=== PATIENT | female | born 1955 | race Caucasian/White ===

== ENCOUNTER 2023-07-09 09:00 | Inpatient (IN) | payer MEDICARE, OTHER ==
[~2023-07-09] VITALS: Ht 160 cm; Wt 75.0 kg
[2023-07-09] MEDS ORDERED: normal saline 1000ML IV soln IVB ONE (09:10)
[2023-07-09 09:35] LABS: BASOPHILS # (AUTO) 0.1 X10'3 (0-0.2); BASOPHILS % (AUTO) 0.4 % (0-1); EOSINOPHILS % (AUTO) 0.2 % (0-6); HEMATOCRIT 42.9 % (35.0-45.0); HEMOGLOBIN 14.1 g/dl (12.0-16.0); LYMPHOCYTES # (AUTO) 0.6 X10'3 (1.1-4.8); LYMPHOCYTES % (AUTO) 2.9 % (21-51); MEAN CORPUSCULAR HEMOGLOBIN 31.3 PG (27.0-31.0); MEAN CORPUSCULAR HGB CONC 32.9 g/dL (33.0-36.5); MEAN CORPUSCULAR VOLUME 95.1 FL (78-98); MONOCYTES # (AUTO) 1.3 X10'3 (0-0.9); MONOCYTES % (AUTO) 6.5 % (2-12); NEUTROPHILS # (AUTO) 17.9 X10'3 (1.8-7.7); PLATELET COUNT 211 X10'3 (140-440); RED BLOOD COUNT 4.51 X10'6 (4.20-5.60); RED CELL DISTRIBUTION WIDTH 12.9 % (11.5-14.5); WHITE BLOOD COUNT 19.8 X10'3 (4.5-11.0)
[2023-07-09] MEDS ORDERED: ipratropium/albuterol 3ml nebule NEB ONE (09:35)
[2023-07-09 09:43] VITALS: PULSE 134; RESP 22; O2SAT 91
[2023-07-09 09:49] VITALS: PULSE 135; RESP 22; O2SAT 95
[2023-07-09 09:58] LABS: ALANINE AMINOTRANSFERASE 20 U/L (12-78); ALBUMIN 3.5 G/DL (3.4-5.0); ALBUMIN/GLOBULIN RATIO 0.9 (1.1-1.5); ALKALINE PHOSPHATASE 75 IU/L (46-116); ANION GAP 8 (8-16); ASPARTATE AMINO TRANSFERASE 15 U/L (10-37); BILIRUBIN,TOTAL 0.7 MG/DL (0.1-1.0); BLOOD UREA NITROGEN 11 MG/DL (7-18); BUN/CREATININE RATIO 13.4 (10.0-20.0); CALCIUM 9.5 MG/DL (8.5-10.1); CHLORIDE 100 MMOL/L (99-107); CREATININE 0.82 MG/DL (0.40-0.90); GLUCOSE 141 MG/DL (70-104); MAGNESIUM 1.7 MG/DL (1.5-2.4); POTASSIUM 3.6 MMOL/L (3.5-5.1); SODIUM 134 MMOL/L (135-145); TOTAL CARBON DIOXIDE 26.3 MMOL/L (24-32); TOTAL PROTEIN 7.3 G/DL (6.4-8.2); eCRCL 54 ML/MIN; eGFR 69 ML/MIN
--- NOTE | 2023-07-09 09:59 | NUR ---
pt is slightly agitated asking to "leave and get out of here". wants to get out of bed. pulling on cords. disconnecting heart monitor.
[2023-07-09] MEDS ORDERED: acetaminophen 1,000mg/100ml IV 100 ML IV ONE (10:05)
[2023-07-09] MEDS ORDERED: piperacillin/tazo 3.375gm/50ml 50 ML IV ONE (10:05)
[2023-07-09] MEDS: acetaminophen 325mg tablet PO ONE ×2 (10:05→10:51)
[2023-07-09] MEDS ORDERED: normal saline 1000ML IV soln IV ONE (10:05)
--- NOTE | 2023-07-09 10:10 | NUR ---
attempted to give pt PO tylenol for fever. pt took sip of water and started to cough. will switch to iv tylenol. md bustillos
[2023-07-09 11:23] LABS: BILIRUBIN,URINE NEGATIVE (Neg); CLARITY,URINE SLIGHTLY CLOUDY (Clear); COLOR,URINE YELLOW (Yellow); GLUCOSE, URINE NEGATIVE (Neg); KETONES,URINE NEGATIVE (Neg); LEUKOCYTE ESTERASE ,URINE NEGATIVE (Neg); NITRITES, URINE NEGATIVE (Neg); OCCULT BLOOD,URINE TRACE-INTACT (Neg); PROTEIN,URINE NEGATIVE (Neg); UROBILINOGEN,URINE 0.2 E.U/dL (0.2-1.0)
[2023-07-09 11:28] LABS: UA COLLECTION TYPE FOLEY CATH
[2023-07-09 11:29] LABS: SQUAMOUS EPITHELIAL CELL,UR MODERATE /LPF (FEW)
[2023-07-09 11:31] LABS: BACTERIA,URINE FEW /HPF (Neg); HYALINE CASTS 0-3 /LPF (NEGATIVE); WBC,URINE 0-4 /HPF (0-4)
[2023-07-09 12:02] LABS: TRANSITIONAL EPI CELLS,URINE FEW /HPF
--- NOTE | 2023-07-09 12:16 | NUR ---
pt removed both iv's and from left hand and right ac. cleaning up pt and repositioning in bed. will try to insert a new iv so pt can receive iv fluids and iv abx.
[2023-07-09] MEDS ORDERED: potassium Cl 40MEQ/1/2NS 520ml 520 ML IV PRN (12:45)
[2023-07-09] MEDS ORDERED: mag hydrox/Alum hydrox/simeth 30ml oral suspension PO PRN (12:45)
[2023-07-09] MEDS ORDERED: ondansetron/PF 4mg/2ml inj IV PRN (12:45)
[2023-07-09] MEDS ORDERED: magnesium hydroxide 30ml (MOM) UD suspension PO PRN (12:45)
[2023-07-09] MEDS ORDERED: potassium Cl 20 mEq SR tablet PO PRN ×2 (12:45)
[2023-07-09] MEDS ORDERED: magnesium Cl slow-release 64mg tablet PO PRN (12:45)
[2023-07-09] MEDS ORDERED: acetaminophen 325mg tablet PO PRN (12:45)
[2023-07-09] MEDS ORDERED: magnesium 4gm in 100ml NS 100 ML IV PRN (12:45)
[2023-07-09 13:04] LABS: D-DIMER 0.91 MG/L FEU (0-0.50)
[2023-07-09] MEDS: normal saline 1000ml 1,000 ML IV SCH (13:26)
--- NOTE | 2023-07-09 13:31 | NUR ---
spoke with arjun bhatia and informed them of pt condition and they said her behavior with pulling out her IV's is not her baseline.
--- NOTE | 2023-07-09 13:35 | NUR ---
Reported pts trending BPs after fluid boluses to hospitalist Dr. Herrera. Instructed to speak with ER MD Dr. Mitchell for possible placement central line and start of pressors.
[2023-07-09] MEDS ORDERED: dexamethasone sod phosphate 10mg/ml inj IV STA (13:53)
[2023-07-09] MEDS ORDERED: glycopyrrolate 0.2mg/ml inj IV ONE (13:55)
--- NOTE | 2023-07-09 13:55 | NUR ---
ER MD Dr. Alemanfs update on pts BP trends, MD assessing pt and to place orders.
[2023-07-09] MEDS ORDERED: ipratropium/albuterol 3ml nebule IH PRN (18:55)
--- NOTE | 2023-07-09 19:01 | NUR ---
Patient sitting in bed with HOB elevated. Eating dinner. No distress. Respirations unlabored and even. No agitated behaviors noted.
[2023-07-09] MEDS: docusate sod 100mg capsule PO SCH (20:00)
[2023-07-09] MEDS ORDERED: temazepam 15mg capsule PO PRN (21:00)
[2023-07-10] VITALS (12 sets, daily range): BP systolic 94–122; BP diastolic 42–62; PULSE 64–93; RESP 13–18; TEMP 94.4–98.3; O2SAT 91–93
[2023-07-10] MEDS: normal saline 1000ml 1,000 ML IV SCH ×3 (00:08→18:45)
--- NOTE | 2023-07-10 00:09 | NUR ---
0006: 1L NS COMPLETED AND NEW BAG HUNG AT THIS TIME WITH RATE OF 100ML/HR PER ORDER.
--- NOTE | 2023-07-10 01:23 | NUR ---
CALLED DR. SALCIDO ABOUT PATIENT'S BPS OF SBP 86/87. REQUESTED NS BOLUS. RECEIVED TELEPHONE ORDER FOR 1L NS BOLUS NOW.
[2023-07-10] MEDS ORDERED: normal saline 1000ml 1,000 ML IV ONE (01:35)
--- NOTE | 2023-07-10 04:42 | NUR ---
I was present for and agree with all assessment findings by Lavinia KELLY. Pt is stable and all needs are met at this time
--- NOTE | 2023-07-10 06:36 | NUR ---
Patient in room PCU 3018. I have received report from Diya KELLY and had the opportunity to ask questions and assume patient care. Addendum: 07/10/23 at 0637 by Gabriela Joseph RN Amended: Links added.
[2023-07-10] MEDS ORDERED: hydrocortisone sod succ/PF 250mg/2ml inj. IV SCH (08:00)
[2023-07-10] MEDS: azithromycin/NS 500mg/250ml 250 ML IV SCH (08:35)
[2023-07-10] MEDS: CefTRIAXone 2gm/D5W 50ml BAG 50 ML IV SCH (08:35)
[2023-07-10] MEDS: docusate sod 100mg capsule PO SCH ×2 (08:35→21:42)
[2023-07-10 08:42] LABS: BASOPHILS % (AUTO) 0 % (0-1); EOSINOPHILS % (AUTO) 0 % (0-6); HEMATOCRIT 37.2 % (35.0-45.0); HEMOGLOBIN 11.9 g/dl (12.0-16.0); LYMPHOCYTES # (AUTO) 1.1 X10'3 (1.1-4.8); LYMPHOCYTES % (AUTO) 5.5 % (21-51); MEAN CORPUSCULAR HEMOGLOBIN 30.7 PG (27.0-31.0); MEAN CORPUSCULAR HGB CONC 31.9 g/dL (33.0-36.5); MEAN CORPUSCULAR VOLUME 96.2 FL (78-98); MEAN PLATELET VOLUME 8.5 FL (7.4-10.4); MONOCYTES # (AUTO) 1.1 X10'3 (0-0.9); MONOCYTES % (AUTO) 5.8 % (2-12); NEUTROPHILS # (AUTO) 17.4 X10'3 (1.8-7.7); NEUTROPHILS % (AUTO) 88.7 % (42-75); PLATELET COUNT 203 X10'3 (140-440); RED BLOOD COUNT 3.87 X10'6 (4.20-5.60); RED CELL DISTRIBUTION WIDTH 13.4 % (11.5-14.5); WHITE BLOOD COUNT 19.6 X10'3 (4.5-11.0)
[2023-07-10 09:05] LABS: ANION GAP 5 (8-16); BLOOD UREA NITROGEN 11 MG/DL (7-18); BUN/CREATININE RATIO 20.8 (10.0-20.0); CHLORIDE 108 MMOL/L (99-107); CREATININE 0.53 MG/DL (0.40-0.90); GLUCOSE 116 MG/DL (70-104); SODIUM 138 MMOL/L (135-145); TOTAL CARBON DIOXIDE 25.4 MMOL/L (24-32)
[2023-07-10 09:06] LABS: ALBUMIN 2.7 G/DL (3.4-5.0); CALCIUM 7.9 MG/DL (8.5-10.1); eCRCL 83 ML/MIN; eGFR > 90 ML/MIN
[2023-07-10] MEDS ORDERED: MAG355OR18 PO (09:35)
[2023-07-10] MEDS ORDERED: PALI1.5T PO (09:35)
[2023-07-10] MEDS ORDERED: PALI3TAB PO (09:35)
[2023-07-10] MEDS ORDERED: CHOL200074 PO (09:35)
[2023-07-10] MEDS ORDERED: DIPH25CA51 PO (09:35)
[2023-07-10] MEDS ORDERED: ACET-812 PO (09:35)
[2023-07-10] MEDS ORDERED: [UNRECOGNIZED DRUG - OTHER] (09:35)
[2023-07-10] MEDS ORDERED: MAGN400O6 PO (09:35)
[2023-07-10] MEDS ORDERED: MULT15TA3 (09:35)
[2023-07-10] MEDS ORDERED: ALBU18HF2 INH (09:35)
[2023-07-10] MEDS ORDERED: ZIPR80CA10 PO (09:35)
[2023-07-10] MEDS ORDERED: OLAN10TA3 PO (09:35)
[2023-07-10] MEDS ORDERED: HYDR-3686 PO (09:35)
[2023-07-10] MEDS ORDERED: BISA10SU97 (09:35)
[2023-07-10] MEDS ORDERED: LITH150C8 PO (09:35)
[2023-07-10] MEDS ORDERED: POLY17PO10 PO (09:35)
[2023-07-10] MEDS ORDERED: levothyroxin (09:35)
[2023-07-10] MEDS ORDERED: PALI9TAB PO (09:35)
[2023-07-10] MEDS ORDERED: ipratropium/albuterol 3ml nebule IH PRN (09:45)
[2023-07-10] MEDS ORDERED: hydrocortisone sod succ/PF 100mg/2ml inj. IV ONE (13:05)
--- NOTE | 2023-07-10 18:39 | NUR ---
Problems reprioritized. Patient report given, questions answered & plan of care reviewed with Diya KELLY. Addendum: 07/10/23 at 1839 by Gabriela Joseph RN Amended: Links added.
[2023-07-10] MEDS ORDERED: magnesium hydroxide 30ml (MOM) UD suspension PO PRN (18:40)
[2023-07-10] MEDS ORDERED: paliperidone 1.5mg ER tablet PO SCH (21:00)
[2023-07-10] MEDS: hydrOXYzine 25 MG tablet PO SCH (21:41)
[2023-07-10] MEDS: diphenhydrAMINE 25mg capsule PO SCH (21:41)
[2023-07-10] MEDS: olanzapine 10mg tablet PO SCH (21:41)
[2023-07-10] MEDS: lithium carbonate 150mg capsule PO SCH (21:43)
[2023-07-10] MEDS ORDERED: non-formulary drug (Paliperidone (Invega) 1 TAB) PO SCH (23:45)
[2023-07-10] MEDS ORDERED: albuterol 2.5 MG/3 ML nebule NEB PRN (23:45)
[2023-07-11] VITALS (8 sets, daily range): BP systolic 102–155; BP diastolic 46–67; PULSE 56–68; RESP 16–18; TEMP 97.2–97.6; O2SAT 93–99
[2023-07-11] MEDS: normal saline 1000ml 1,000 ML IV SCH (05:39)
--- NOTE | 2023-07-11 06:19 | NUR ---
Patient in room PCU 3018. I have received report from Diya KELLY and had the opportunity to ask questions and assume patient care. Addendum: 07/11/23 at 0620 by Umang Klein RN Amended: Links added.
--- NOTE | 2023-07-11 06:21 | NUR ---
Patient in room PCU 3018. I have received report from Diya KELLY and had the opportunity to ask questions and assume patient care. Will follow care of pt with Adrienne LOCK Addendum: 07/11/23 at 0622 by Gabriela Joseph RN Amended: Links added.
[2023-07-11 07:40] LABS: BASOPHILS % (AUTO) 0.1 % (0-1); EOSINOPHILS % (AUTO) 0.1 % (0-6); HEMATOCRIT 37.2 % (35.0-45.0); LYMPHOCYTES # (AUTO) 2.1 X10'3 (1.1-4.8); LYMPHOCYTES % (AUTO) 15.5 % (21-51); MEAN CORPUSCULAR HEMOGLOBIN 30.9 PG (27.0-31.0); MEAN CORPUSCULAR HGB CONC 32.3 g/dL (33.0-36.5); MEAN CORPUSCULAR VOLUME 95.9 FL (78-98); MEAN PLATELET VOLUME 8.4 FL (7.4-10.4); MONOCYTES # (AUTO) 0.9 X10'3 (0-0.9); MONOCYTES % (AUTO) 6.9 % (2-12); NEUTROPHILS # (AUTO) 10.5 X10'3 (1.8-7.7); NEUTROPHILS % (AUTO) 77.4 % (42-75); PLATELET COUNT 208 X10'3 (140-440); RED BLOOD COUNT 3.88 X10'6 (4.20-5.60); RED CELL DISTRIBUTION WIDTH 13.5 % (11.5-14.5); WHITE BLOOD COUNT 13.6 X10'3 (4.5-11.0)
[2023-07-11] MEDS: levoTHYROXINE 25mcg tablet PO SCH (07:42)
[2023-07-11] MEDS: oxybutynin 5mg tablet PO SCH (07:43)
[2023-07-11] MEDS: cholecalciferol (vitamin D3) 1,000 unit (25mcg) tablet PO SCH (07:43)
[2023-07-11] MEDS: docusate sod 100mg capsule PO SCH ×2 (07:44→21:47)
[2023-07-11] MEDS: diphenhydrAMINE 25mg capsule PO SCH ×2 (07:44→21:47)
[2023-07-11] MEDS: hydrOXYzine 25 MG tablet PO SCH ×2 (07:44→21:46)
[2023-07-11] MEDS: polyethylene glycol 3350 17gm powd pack PO SCH (07:45)
[2023-07-11] MEDS: ziprasidone 20mg capsule PO SCH (08:01)
[2023-07-11 08:02] LABS: ALBUMIN 2.8 G/DL (3.4-5.0); ANION GAP 6 (8-16); BLOOD UREA NITROGEN 13 MG/DL (7-18); BUN/CREATININE RATIO 19.4 (10.0-20.0); CALCIUM 8.7 MG/DL (8.5-10.1); CHLORIDE 109 MMOL/L (99-107); CREATININE 0.67 MG/DL (0.40-0.90); GLUCOSE 97 MG/DL (70-104); SODIUM 140 MMOL/L (135-145); eCRCL 66 ML/MIN; eGFR 87 ML/MIN
[2023-07-11] MEDS: azithromycin/NS 500mg/250ml 250 ML IV SCH (08:02)
[2023-07-11] MEDS: CefTRIAXone 2gm/D5W 50ml BAG 50 ML IV SCH (08:02)
[2023-07-11] MEDS: acetaminophen 325mg tablet PO SCH ×3 (08:10→16:29)
[2023-07-11] MEDS: lithium carbonate 150mg capsule PO SCH ×2 (08:12→21:48)
[2023-07-11] MEDS: hydrocortisone sod succ/PF 100mg/2ml inj. IV SCH (08:34)
[2023-07-11 10:20] LABS: THYROID STIMULATING HORMONE 4.12 ulU/ml (0.34-4.50)
[2023-07-11] MEDS ORDERED: ondansetron 4mg rapidly disintigrating tab PO PRN (14:10)
--- NOTE | 2023-07-11 18:32 | NUR ---
Problems reprioritized. Patient report given, questions answered & plan of care reviewed with Ana LOCK. Addendum: 07/11/23 at 1832 by Gabriela Joseph RN Amended: Links added.
[2023-07-11] MEDS ORDERED: enoxaparin 40mg/0.4ml syringe SQ SCH (20:00)
[2023-07-11] MEDS ORDERED: PALIPERIDONE 3 MG TAB.ER.24 PO SCH (21:00)
[2023-07-11] MEDS: olanzapine 10mg tablet PO SCH (21:47)
[2023-07-12 02:00] VITALS: BP 109/43; PULSE 62; RESP 18; TEMP 97.6; O2SAT 94
--- NOTE | 2023-07-12 06:21 | NUR ---
Problems reprioritized. Patient report given, questions answered & plan of care reviewed with Gabriela
--- NOTE | 2023-07-12 06:30 | NUR ---
Patient in room PCU 3018. I have received report from Ana LOCK and had the opportunity to ask questions and assume patient care.Pt sleeping. call light in reach. Addendum: 07/12/23 at 0631 by Gabriela Joseph RN Amended: Links added.
[2023-07-12 06:38] LABS: BASOPHILS % (AUTO) 0.3 % (0-1); EOSINOPHILS % (AUTO) 0.3 % (0-6); HEMOGLOBIN 11.5 g/dl (12.0-16.0); LYMPHOCYTES # (AUTO) 2.7 X10'3 (1.1-4.8); LYMPHOCYTES % (AUTO) 24.9 % (21-51); MEAN CORPUSCULAR HEMOGLOBIN 31.7 PG (27.0-31.0); MEAN CORPUSCULAR HGB CONC 32.9 g/dL (33.0-36.5); MEAN CORPUSCULAR VOLUME 96.4 FL (78-98); MEAN PLATELET VOLUME 8.7 FL (7.4-10.4); MONOCYTES # (AUTO) 0.8 X10'3 (0-0.9); MONOCYTES % (AUTO) 7.7 % (2-12); NEUTROPHILS # (AUTO) 7.2 X10'3 (1.8-7.7); NEUTROPHILS % (AUTO) 66.8 % (42-75); PLATELET COUNT 208 X10'3 (140-440); RED BLOOD COUNT 3.63 X10'6 (4.20-5.60); RED CELL DISTRIBUTION WIDTH 13.4 % (11.5-14.5); WHITE BLOOD COUNT 10.8 X10'3 (4.5-11.0)
[2023-07-12 06:46] VITALS: BP 117/60; PULSE 68; RESP 15; TEMP 97.4; O2SAT 95
[2023-07-12 07:29] LABS: ALBUMIN 2.6 G/DL (3.4-5.0); ANION GAP 5 (8-16); BLOOD UREA NITROGEN 22 MG/DL (7-18); BUN/CREATININE RATIO 28.2 (10.0-20.0); CALCIUM 8.6 MG/DL (8.5-10.1); CHLORIDE 108 MMOL/L (99-107); CREATININE 0.78 MG/DL (0.40-0.90); GLUCOSE 83 MG/DL (70-104); POTASSIUM 4.2 MMOL/L (3.5-5.1); SODIUM 142 MMOL/L (135-145); TOTAL CARBON DIOXIDE 28.6 MMOL/L (24-32); eCRCL 56 ML/MIN; eGFR 73 ML/MIN
[2023-07-12 07:49] VITALS: PULSE 60; RESP 18; O2SAT 94
[2023-07-12 07:50] VITALS: PULSE 62; RESP 18
[2023-07-12 07:52] VITALS: PULSE 56; RESP 18; O2SAT 99
[2023-07-12] MEDS: diphenhydrAMINE 25mg capsule PO SCH (08:00)
[2023-07-12 08:10] VITALS: RESP 15; O2SAT 95
[2023-07-12] MEDS: CefTRIAXone 2gm/D5W 50ml BAG 50 ML IV SCH (08:24)
[2023-07-12] MEDS: hydrocortisone sod succ/PF 100mg/2ml inj. IV SCH (08:24)
[2023-07-12] MEDS: azithromycin/NS 500mg/250ml 250 ML IV SCH (08:24)
[2023-07-12] MEDS: levoTHYROXINE 25mcg tablet PO SCH (08:29)
[2023-07-12] MEDS: docusate sod 100mg capsule PO SCH (08:29)
[2023-07-12] MEDS: polyethylene glycol 3350 17gm powd pack PO SCH (08:30)
[2023-07-12] MEDS: oxybutynin 5mg tablet PO SCH (08:30)
[2023-07-12] MEDS: cholecalciferol (vitamin D3) 1,000 unit (25mcg) tablet PO SCH (08:30)
[2023-07-12] MEDS: hydrOXYzine 25 MG tablet PO SCH (08:30)
[2023-07-12] MEDS: ziprasidone 20mg capsule PO SCH (08:31)
[2023-07-12] MEDS: lithium carbonate 150mg capsule PO SCH (08:31)
[2023-07-12] MEDS: acetaminophen 325mg tablet PO SCH ×2 (08:36)
[2023-07-12] MEDS ORDERED: ADV50250 IH (12:50)
[2023-07-12] MEDS ORDERED: LEVO750T68 PO (12:53)
--- NOTE | 2023-07-12 16:05 | NUR ---
mini report called to [facility] at [facility]. All questions answered. Medications reviewed. Pt [facility] [place] [facility]. Addendum: 07/12/23 at 1608 by Gabriela Joseph RN Amended: Links added.
== END 2023-07-12 16:00 | DRG 871 ==
LOC: ER 09:01 → ED HOLD 12:50 → PCU 3S 07-10 01:45
PROVIDERS: ADMIT Family Medicine; ATTEND Family Medicine
DX: A41.9 Sepsis, unspecified organism (principal); J69.0 Pneumonitis due to inhalation of food and vomit; E66.9 Obesity, unspecified; Z68.29 Body mass index [BMI] 29.0-29.9, adult; F25.9 Schizoaffective disorder, unspecified; R09.02 Hypoxemia; Z20.822 Contact with and (suspected) exposure to COVID-19; F31.9 Bipolar disorder, unspecified; G47.30 Sleep apnea, unspecified; Z79.899 Other long term (current) drug therapy; Z91.09 Other allergy status, other than to drugs and biological substances
CPT/HCPCS: 36415; 71045; 80048; 80053; 81001; 83605; 83735; 84145; 84443; 85025; 85379; 87040; 87081; 87502; 87503; 87811; 94640; 94760; 96365; 96375; 97161; 97530; 99285; A4615; A6258; C1758; G0378; J0131; J0456; J0696; J1100; J1650; J1720; J2543; J3490; J7030; J7040; Q0163; Q0177

== ENCOUNTER 2024-04-22 11:02 | Outpatient (CLI) | payer MEDICARE, MEDICAID ==
[~2024-04-22 11:02] MED LIST: ALBU18HF2 INH; BISA10SU97; CHOL200074 PO; DIPH25CA51 PO; HYDR-3686 PO; LITH150C8 PO; MAG355OR18 PO; MAGN400O6 PO; MULT15TA3; OLAN10TA3 PO; PALI1.5T PO; PALI3TAB PO; PALI9TAB PO; POLY17PO10 PO; ZIPR80CA10 PO; [UNRECOGNIZED DRUG - OTHER]; levothyroxin
== END 2024-04-22 23:59 | disposition home or self-care (01) ==
LOC: RAD 11:02
PROVIDERS: ATTEND Internal Medicine
DX: R13.10 Dysphagia, unspecified (principal)
CPT/HCPCS: 74230